=== PATIENT | male | born 1940 | race Caucasian/White ===

== ENCOUNTER 2020-06-15 08:59 | Inpatient (IN) ==
[~2020-06-15 08:59] MED LIST: Buffered Lidocaine 1% SYRIN 1 ml INTRADERM ONE; Bupivacaine 0.5% SDV PF 30ML VIAL ONE; EPHEDrine (Pressors) 50 MG/ML VIAL ONE; Famotidine IV 10 MG/ML 2 ml VIAL (20 mg) IV ONE; Lactated Ringers 1000 ml BAG 1,000 ML IV SCH; Lidocaine 2% PF 5 ML VIAL ONE; Midazolam 2 mg/2 ml VIAL 1 mg/ml 2 ml VIAL (2 mg) ONE; Propofol 10 MG/ML 20 ML BTL ONE; Sodium Citrate/Citric Acid LIQ 15 ML UDC PO ONE; Sterile Water for Inj 10 ML ONE
[2020-06-15] MEDS ORDERED: Propofol 10 MG/ML 20 ML BTL ONE ×2 (09:01→11:13)
[2020-06-15] MEDS ORDERED: Famotidine IV 10 MG/ML 2 ml VIAL (20 mg) ONE (09:20)
[2020-06-15] MEDS ORDERED: Sodium Citrate/Citric Acid LIQ 15 ML UDC ONE (09:20)
[2020-06-15] MEDS ORDERED: ceFAZolin 2 GM PREMIX 2 GM/50 ML BAG ONE (09:20)
[2020-06-15] MEDS ORDERED: Phenylephrine IV 10 MG/ML 1 ml VIAL ONE ×2 (09:51→13:31)
[2020-06-15] MEDS ORDERED: fentaNYL 250 mcg/5 ml 50 MCG/ML 5 ml VIAL (250 MCG) ONE (11:12)
[2020-06-15] MEDS ORDERED: Rocuronium 50 mg VIAL 10 mg/ml 5 ml VIAL (50 mg) ONE (11:12)
[2020-06-15] MEDS ORDERED: Lidocaine 1% w EPI 1:100,000 MDV 20 ML VIAL ONE (11:18)
[2020-06-15] MEDS ORDERED: Bupivacaine 0.5% SDV PF 30ML VIAL ONE (11:19)
[2020-06-15] MEDS ORDERED: Vancomycin 1,000 MG VIAL ONE (11:19)
[2020-06-15] MEDS ORDERED: Phenylephrine 40 mcg/mL 10mL (400mcg) SYRINGE ONE (11:49)
[2020-06-15] MEDS ORDERED: Dexamethasone IV 4 MG/ML VIAL 1 ml VIAL ONE (11:51)
[2020-06-15] MEDS ORDERED: Acetaminophen IV 1 GM/100ML 100 ML ONE (12:22)
[2020-06-15] MEDS ORDERED: Ondansetron 4 mg VIAL 2 MG/ML 2 ml VIAL ONE (12:22)
[2020-06-15] MEDS ORDERED: Sugammadex 500 MG/5 ML 5 ml VIAL IV PUSH ONE (12:22)
[2020-06-15] MEDS ORDERED: fentaNYL 100 mcg/2 ml 50 MCG/ML VIAL IV PRN (12:41)
[2020-06-15] MEDS ORDERED: Ondansetron 4 mg VIAL 2 MG/ML 2 ml VIAL IV PRN ×2 (12:41→14:15)
[2020-06-15] MEDS ORDERED: HYDROmorphone 1 MG/1 ML SYRINGE IV PRN (12:41)
[2020-06-15] MEDS ORDERED: DiMENhydriNATE IV 50 mg/ml 1 ml VIAL IV PUSH PRN (12:41)
[2020-06-15] MEDS ORDERED: diPHENhydraMINE IV 50 MG/ML 1 ml VIAL (BENADRYL) IV PRN ×2 (12:41→14:15)
[2020-06-15] MEDS ORDERED: Naloxone 0.4 mg VIAL 0.4 mg/ml 1 ml VIAL IV PRN (12:41)
[2020-06-15] MEDS ORDERED: Magnesium Hydroxide LIQ 30 ML UDC PO PRN (14:15)
[2020-06-15] MEDS ORDERED: diPHENhydraMINE 25 mg TAB PO PRN (14:15)
[2020-06-15] MEDS ORDERED: Lactulose 30 ml UDC PO PRN (14:15)
[2020-06-15] MEDS ORDERED: Morphine 2 MG/ML SYRINGE IV PRN (14:15)
[2020-06-15] MEDS ORDERED: Ondansetron ODT 4 mg TAB 4 MG TAB PO PRN (14:15)
[2020-06-15] MEDS ORDERED: D5W 1/2 NS 1000 ml BAG 1,000 ML IV SCH (15:00)
[2020-06-15] MEDS ORDERED: ceFAZolin 1 GM ADVAN 1 GM in NS 0.9% 50 ML 50 ML IVPB SCH (15:00)
[2020-06-15] MEDS ORDERED: Lactated Ringers 1000 ml BAG 1,000 ML IV ONE (16:07)
[2020-06-15 18:16] LABS: ABS Lymphocytes 0.9 10^3/ul (1.0-4.8); ABS Monocytes 0.6 10^3/ul (0-0.8); ABS Neutrophils 13.1 10^3/ul (1.5-7.7); Hematocrit 39 % (42-52); Hemoglobin 13.1 g/dL (14.0-18.0); Lymphocyte % 6.1 %; Mean Corpuscular HGB Conc 34 g/dL (31-36); Mean Corpuscular Hemoglobin 32 pg (27-31); Mean Corpuscular Volume 93 fL (80-94); Mean Platelet Volume 7.1 fL (7.4-10.4); Platelet Count 185 10^3/uL (150-450); Red Blood Count 4.15 10^6 /uL (4.18-5.48); Red Cell Distribution Width 13 % (10-15); White Blood Count 14.7 10^3/uL (3.5-10.8)
[2020-06-15 18:22] LABS: INR 1.18 (0.82-1.09)
[2020-06-15 18:33] LABS: Albumin 3.4 g/dL (3.2-5.2); Albumin/Globulin Ratio 1.7 (1-3); BUN/Creatinine Ratio 25.5 (8-20); Calcium 8.5 mg/dL (8.6-10.3); EGFR African American 89.5 (>60); Magnesium 1.7 mg/dL (1.9-2.7); Potassium 4.4 mmol/L (3.5-5.0); Total Bilirubin 0.8 mg/dL (0.2-1.0); Total Protein 5.4 g/dL (6.4-8.9)
[2020-06-15] MEDS ORDERED: Magnesium Sulfate 2 gm BAG 2 GM/50 ML BAG IVPB ONE (18:37)
[2020-06-15] MEDS: Magnesium Hydroxide LIQ 30 ML UDC PO SCH (21:09)
[2020-06-15] MEDS ORDERED: NS 0.9% 500 ml BAG 500 ML IV ONE (21:30)
[2020-06-15] MEDS: ceFAZolin 1 GM ADVAN 1 GM in NS 0.9% 50 ML 50 ML IVPB SCH (22:13)
[2020-06-16] MEDS ORDERED: NS 0.9% 1000 ml BAG 1,000 ML IV SCH (01:00)
[2020-06-16] MEDS ORDERED: Norepinephrine 16MCG/ML IVPRE 4,000 MCG/250 ML BAG IV ONE (01:22)
[2020-06-16] MEDS: Norepinephrine 16MCG/ML IVPRE 4,000 MCG/250 ML BAG IV SCH ×2 (01:58→10:00)
[2020-06-16] MEDS ORDERED: Norepinephrine 16MCG/ML IVPRE 4,000 MCG/250 ML BAG IV SCH (02:00)
[2020-06-16] MEDS: ceFAZolin 1 GM ADVAN 1 GM in NS 0.9% 50 ML 50 ML IVPB SCH ×2 (05:43→14:46)
[2020-06-16 06:23] LABS: Hematocrit 33 % (42-52); Hemoglobin 11.5 g/dL (14.0-18.0); Mean Platelet Volume 7.3 fL (7.4-10.4); Platelet Count 197 10^3/uL (150-450)
[2020-06-16 06:43] LABS: BUN/Creatinine Ratio 25.2 (8-20); Calcium 7.8 mg/dL (8.6-10.3); EGFR African American 74.4 (>60); EGFR Non-African American 61.5 (>60)
[2020-06-16] MEDS: Vitamin THERAPEUTIC TAB PO SCH (08:06)
[2020-06-16] MEDS: Magnesium Hydroxide LIQ 30 ML UDC PO SCH (08:06)
[2020-06-16 10:06] LABS: Mean Corpuscular HGB Conc 35 g/dL (31-36); Mean Corpuscular Hemoglobin 32 pg (27-31); Mean Corpuscular Volume 92 fL (80-94); Red Blood Count 3.63 10^6 /uL (4.18-5.48); Red Cell Distribution Width 13 % (10-15); White Blood Count 14.4 10^3/uL (3.5-10.8)
[2020-06-16] MEDS ORDERED: Lactated Ringers 1000 ml BAG 1,000 ML IV ONE (11:32)
[2020-06-16] MEDS ORDERED: Perflutren Lipid Microsphere 3 ML VIAL ONE (14:21)
[2020-06-17 04:46] LABS: Hematocrit 27 % (42-52); Hemoglobin 9.5 g/dL (14.0-18.0); Mean Corpuscular HGB Conc 35 g/dL (31-36); Mean Corpuscular Hemoglobin 32 pg (27-31); Mean Corpuscular Volume 90 fL (80-94); Mean Platelet Volume 7.2 fL (7.4-10.4); Platelet Count 145 10^3/uL (150-450); Red Blood Count 2.98 10^6 /uL (4.18-5.48); Red Cell Distribution Width 13 % (10-15); White Blood Count 8.6 10^3/uL (3.5-10.8)
[2020-06-17 05:45] LABS: BUN/Creatinine Ratio 31.9 (8-20); Calcium 7.9 mg/dL (8.6-10.3); EGFR African American 97.5 (>60); EGFR Non-African American 80.6 (>60); Magnesium 2.2 mg/dL (1.9-2.7); Potassium 4.7 mmol/L (3.5-5.0)
[2020-06-17] MEDS: Vitamin THERAPEUTIC TAB PO SCH (07:42)
[2020-06-17] MEDS ORDERED: Digoxin IV 0.5 MG/2 ML AMP (0.25 MG/ML) IV SLOW PU ONE ×2 (13:57→21:00)
[2020-06-18 03:58] LABS: Hematocrit 26 % (42-52); Hemoglobin 9.1 g/dL (14.0-18.0); Mean Corpuscular HGB Conc 36 g/dL (31-36); Mean Corpuscular Hemoglobin 32 pg (27-31); Mean Corpuscular Volume 91 fL (80-94); Mean Platelet Volume 6.8 fL (7.4-10.4); Platelet Count 158 10^3/uL (150-450); Red Blood Count 2.85 10^6 /uL (4.18-5.48); Red Cell Distribution Width 13 % (10-15); White Blood Count 7.8 10^3/uL (3.5-10.8)
[2020-06-18 04:15] LABS: BUN/Creatinine Ratio 25.3 (8-20); Calcium 7.9 mg/dL (8.6-10.3); EGFR African American 102.7 (>60); EGFR Non-African American 84.9 (>60); Potassium 4.3 mmol/L (3.5-5.0)
[2020-06-18] MEDS: Vitamin THERAPEUTIC TAB PO SCH (08:01)
[2020-06-18] MEDS ORDERED: Cosyntropin 0.25 MG VIAL IV ONE (08:27)
[2020-06-18 10:04] LABS: TSH Ultra Thyroid Stim Horm 1.75 mcIU/mL (0.34-5.60)
[2020-06-19] MEDS: Vitamin THERAPEUTIC TAB PO SCH (08:18)
[2020-06-19] MEDS ORDERED: Furosemide 20 mg/2 ml IV VIAL IV SLOW PU ONE (10:44)
[2020-06-19 20:09] LABS: ABS Basophils 0.1 10^3/ul (0-0.2); ABS Eosinophils 0.1 10^3/ul (0-0.6); ABS Lymphocytes 1.6 10^3/ul (1.0-4.8); ABS Monocytes 0.7 10^3/ul (0-0.8); ABS Neutrophils 5.6 10^3/ul (1.5-7.7); Eosinophil % 1.8 %; Hematocrit 33 % (42-52); Hemoglobin 11.6 g/dL (14.0-18.0); Lymphocyte % 19.5 %; Mean Corpuscular HGB Conc 35 g/dL (31-36); Mean Corpuscular Hemoglobin 32 pg (27-31); Mean Corpuscular Volume 91 fL (80-94); Mean Platelet Volume 6.8 fL (7.4-10.4); Platelet Count 237 10^3/uL (150-450); Red Cell Distribution Width 13 % (10-15); White Blood Count 8.1 10^3/uL (3.5-10.8)
[2020-06-19 20:26] LABS: Albumin 3.3 g/dL (3.2-5.2); Albumin/Globulin Ratio 1.3 (1-3); BUN/Creatinine Ratio 25.9 (8-20); Calcium 8.5 mg/dL (8.6-10.3); EGFR African American 105.5 (>60); EGFR Non-African American 87.2 (>60); Globulin 2.5 g/dL (2-4); Magnesium 1.9 mg/dL (1.9-2.7); Potassium 3.9 mmol/L (3.5-5.0); Total Bilirubin 1.6 mg/dL (0.2-1.0); Total Protein 5.8 g/dL (6.4-8.9)
[2020-06-20 04:52] LABS: ABS Basophils 0.1 10^3/ul (0-0.2); ABS Eosinophils 0.2 10^3/ul (0-0.6); ABS Monocytes 0.6 10^3/ul (0-0.8); ABS Neutrophils 3.9 10^3/ul (1.5-7.7); Eosinophil % 3.4 %; Hematocrit 30 % (42-52); Hemoglobin 10.5 g/dL (14.0-18.0); Lymphocyte % 29.4 %; Mean Corpuscular HGB Conc 35 g/dL (31-36); Mean Corpuscular Hemoglobin 32 pg (27-31); Mean Corpuscular Volume 91 fL (80-94); Platelet Count 209 10^3/uL (150-450); Red Blood Count 3.29 10^6 /uL (4.18-5.48); Red Cell Distribution Width 13 % (10-15); White Blood Count 6.9 10^3/uL (3.5-10.8)
[2020-06-20 05:17] LABS: BUN/Creatinine Ratio 28.2 (8-20); Calcium 8.1 mg/dL (8.6-10.3); EGFR African American 105.5 (>60); EGFR Non-African American 87.2 (>60); Magnesium 1.8 mg/dL (1.9-2.7); Potassium 3.7 mmol/L (3.5-5.0)
[2020-06-20] MEDS: Vitamin THERAPEUTIC TAB PO SCH (09:16)
[2020-06-20 15:09] VITALS: BP 120/73
== END 2020-06-20 16:00 | disposition home health service (06) | DRG 982 ==
LOC: SSU 08:59 → OR 08:59 → ICU 06-16 00:30 → SSU 06-18 17:39
PROVIDERS: ADMIT Orthopaedic Surgery; ATTEND Orthopaedic Surgery